=== PATIENT | female | born 1950 | race Hispanic/Latino ===

== ENCOUNTER 2017-06-05 11:46 | Outpatient (CLI) | payer MEDICARE, OTHER | END 2017-06-05 11:47 | disposition home or self-care (01) | LOC: LABHHL 11:46 | PROVIDERS: ATTEND Specialist | DX: N63 Unspecified lump in breast (principal); I10 Essential (primary) hypertension; J45.909 Unspecified asthma, uncomplicated | CPT/HCPCS: 88305; 88361 ==

== ENCOUNTER 2017-06-22 12:42 | Outpatient (CLI) | payer MEDICARE ==
--- NOTE | 2017-06-22 16:33 | Magnetic Resonance Report ---
BILATERAL BREAST MRI WITHOUT AND WITH CONTRAST: 06/22/17 12:42:00 CLINICAL: Newly diagnosed right breast cancer and status post left partial mastectomy for breast cancer 06/14/14. COMPARISON:04/23/17 bilateral mammogram. TECHNIQUE: Axial 1.0-mm T1 without, axial high resolution 2.0-mm T2 and axial 1.0-mm dynamic Vibrant high-resolution postcontrast T1 fat saturation sequences on a 1.5 Rose magnet. The examination was performed with an 8 channel dedicated [place] breast coil. Post processing with CAD and subtraction was performed on an [employer] workstation. 14.0 cc of Multihance was injected without incident for the contrast portion of the exam. Consent was obtained prior to the administration of the contrast. FINDINGS: Right: Mild background parenchymal enhancement. The newly diagnosed cancer is an irregular lower outer mass 8.9 cm from the nipple and 5.5 cm from the chest wall measuring 2.6 x 1.9 x 1.3 cm. It demonstrates heterogeneous enhancement with mixed kinetics 114% peak enhancement and 29% type III washout. No other mass or suspicious enhancement of the right breast. No suspicious right axillary or right internal mammary lymph nodes. Left: Mild background parenchymal enhancement. No mass or suspicious enhancement of the left breast. No suspicious left axillary or left internal mammary lymph nodes. IMPRESSION: Newly diagnosed 2.6 cm right breast cancer and no other suspicious lesion of either breast. No suspicious lymph nodes. RIGHT BI-RADS 6 -- Known Cancer LEFT BI-RADS 1 -- Negative
== END 2017-06-22 12:43 | disposition home or self-care (01) ==
LOC: SPVIMAG 12:42
PROVIDERS: ATTEND Surgery
DX: C50.511 Malignant neoplasm of lower-outer quadrant of right female breast (principal); I10 Essential (primary) hypertension; J45.909 Unspecified asthma, uncomplicated; Z90.12 Acquired absence of left breast and nipple; Z87.891 Personal history of nicotine dependence
CPT/HCPCS: 0159T; A9577; C8908; 77059

== ENCOUNTER 2017-07-08 06:41 | Day surgery (SDC) | payer MEDICARE ==
[2017-07-08] MEDS ORDERED: LACTATED RINGERS 1,000 ML IV SCH (07:00)
[2017-07-08] MEDS ORDERED: VERSED IV NR (07:00)
[2017-07-08] MEDS ORDERED: PEPCID PO NR (07:00)
[2017-07-08] MEDS ORDERED: QUELICIN ONE (07:27)
[2017-07-08] MEDS ORDERED: SUBLIMAZE ONE (07:27)
[2017-07-08] MEDS ORDERED: XYLOCAINE MPF 2% ONE (07:27)
[2017-07-08] MEDS ORDERED: DIPRIVAN 10 MG/ML IV ONE (07:27)
--- NOTE | 2017-07-08 07:52 | Anesthesia Consultation ---
Anesthesia Consult and Med Hx Date of service: 07/08/17 - Airway Anesthetic Teeth Evaluation: Good, Crowns (lower) ROM Head & Neck: Adequate Mental/Hyoid Distance: Adequate Mallampati Class: Class II Intubation Access Assessment: Probably Good - Pulmonary Exam CTA: Yes - Cardiac Exam Cardiac Exam: RRR - Pre-Operative Health Status ASA Pre-Surgery Classification: ASA3 Proposed Anesthetic Plan: General - Pulmonary Hx Smoking: Yes (quit 30 yrs ago) Hx Asthma: Yes (inhaler use last year) Hx Sleep Apnea: No (ANN PRE SCREEN HIGH RISK) - Cardiovascular System Hx Hypertension: Yes Hx Heart Attack/AMI: No Hx Heart Murmur: Yes - Central Nervous System Hx Back Pain: Yes (LUMBAR FUSION) Hx Psychiatric Problems: No - Gastrointestinal Hx Gastroesophageal Reflux Disease: Yes (took nexium) - Endocrine Hx Renal Disease: No Hx Insulin Dependent Diabetes: No Hx Non-Insulin Dependent Diabetes: No - Hematic Hx Anemia: No - Other Systems Hx Alcohol Use: No Hx Substance Use: No Hx Cancer: Yes (rt breast ca, lt mastectomy w sentinel lymph node bx) - Additional Comments Anesthesia Medical History Comments: Woke up a foot surgery
--- NOTE | 2017-07-08 07:54 | Anesthesia Day of Surgery ---
Anesthesia Day of Surgery - Day of Surgery Patient Examined: Yes Patient H&P Reviewed: Yes Patient is NPO: Yes
[2017-07-08] MEDS ORDERED: TRANSDERM-SCOP TD NR (08:00)
[2017-07-08] MEDS ORDERED: NACL BACTERIOSTATIC INFILTRATI ONE (08:03)
[2017-07-08] MEDS ORDERED: ZOFRAN IV PRN ×2 (08:08→11:45)
[2017-07-08 08:13] LABS: Eosinophils % (Auto) 6.4 % (0.0-4.3); Hematocrit 37.9 % (30.3-42.9); Hemoglobin 12.7 gm/dl (10.1-14.3); Mean Corpuscular HGB Conc 34 % (30-34); Mean Corpuscular Hemoglobin 30 pg (28-32); Mean Corpuscular Volume 89 fl (79-97); Platelet Count 212 K/mm3 (140-440); Red Blood Count 4.24 M/mm3 (3.65-5.03); Red Cell Distribution Width 14.4 % (13.2-15.2); White Blood Count 5.9 K/mm3 (4.5-11.0)
[2017-07-08] MEDS ORDERED: MARCAINE-EPI 0.5%-1:200,000 INFILTRATI ONE (08:16)
[2017-07-08] MEDS ORDERED: DECADRON ONE ×2 (08:16→10:36)
[2017-07-08] MEDS ORDERED: SUBLIMAZE IV ONE (08:30)
[2017-07-08] MEDS ORDERED: ANCEF IV ONE (08:55)
[2017-07-08] MEDS ORDERED: WATER FOR IRRIG STERILE IR ONE (08:55)
[2017-07-08] MEDS ORDERED: VANCOMYCIN/NS 1 GM/250 ML 1 GM/250 ML BAG IV NR (09:00)
[2017-07-08] MEDS ORDERED: ZOFRAN ONE ×2 (10:36→11:31)
--- NOTE | 2017-07-08 10:43 | Mammography Report ---
SPECIMEN RADIOGRAPH RIGHT BREAST: 07/08/17 06:41:00 CLINICAL: Partial meniscectomy. FINDINGS: An irregular 2.2 cm mass with a biopsy clip correlates with the known cancer. IMPRESSION: Excision of the known cancer.
--- NOTE | 2017-07-08 10:52 | Short Stay Summary ---
Short Stay Documentation Date of service: 07/08/17 - History H&P: obtained from office - Allergies and Medications Current Medications: Allergies cephalexin monohydrate [From Keflex] Adverse Reaction (Verified 06/08/14 08:10) Rash codeine Adverse Reaction (Verified 06/08/14 08:10) JITTERY levofloxacin [From Levaquin] Adverse Reaction (Verified 06/08/14 08:10) Rash Sulfa (Sulfonamide Antibiotics) Adverse Reaction (Verified 06/08/14 08:10) Unknown Home Medications Medication Instructions Recorded Confirmed Last Taken Type Azelastine HCl [Astepro] 1 spray NS QDAY 06/08/14 07/08/17 07/07/17 History Diclofenac Sodium 75 mg PO BID 06/08/14 07/08/17 07/04/17 History Diltiazem HCl [Diltiazem ER] 120 mg PO QDAY 06/08/14 07/08/17 07/08/17 05:00 History Esomeprazole Magnesium [Nexium] 40 mg PO QDAY 06/08/14 07/08/17 07/08/17 05:00 History Fluticasone Propionate [Flonase] 1 spray NS BID 06/08/14 07/08/17 07/07/17 History Guaifenesin/Pseudoephedrne HCl 1 each PO BID 06/08/14 07/08/17 07/07/17 History [Mucinex D ER Tablet] Losartan/Hydrochlorothiazide 1 each PO QDAY 06/08/14 07/08/17 07/08/17 05:00 History [Hyzaar 100-25 Tablet] Montelukast Sodium [Singulair] 10 mg PO QDAY 06/08/14 07/08/17 07/07/17 History Multivitamin [Multi Vitamin Daily] 1 each PO QDAY 06/08/14 07/08/17 07/07/17 History Hydroxychloroquine [Plaquenil] 200 mg PO QDAY 06/26/17 07/08/17 07/07/17 History Methotrexate Sodium [Trexall] 1 mg PO QDAY 06/26/17 07/08/17 07/07/17 History Potassium Chloride [K-Dur] 10 meq PO QDAY 06/26/17 07/08/17 07/07/17 History Ibuprofen [Motrin 800 MG tab] 800 mg PO Q8HR PRN #30 tablet 07/08/17 Unknown Rx Active Medications Hydromorphone HCl (Dilaudid) 0.5 mg IV Q10MIN PRN PRN Reason: Pain , Severe (7-10) Stop: 07/08/17 15:00 Lactated Ringer's (Lactated Ringers) 1,000 mls @ 100 mls/hr IV DIRECT KAYLEY Last Admin: 07/08/17 08:10 Dose: 100 mls/hr Midazolam HCl (Versed) 2 mg IV PREOP NR Stop: 07/08/17 23:59 Last Admin: 07/08/17 08:33 Dose: 2 mg Scopolamine (Transderm-Scop) 1 each TD PREOP NR Stop: 07/08/17 15:00 Last Admin: 07/08/17 08:24 Dose: 1 each - Brief post op/procedure progress note Date of procedure: 07/08/17 Pre-op diagnosis: Right breast cancer of the lower outer quadrant Post-op diagnosis: same Procedure: Ultrasound guided right partial mastectomy with SLNB Anesthesia: GETA Findings: Radiograph specimen with mass and clip present; 2 SLNs Surgeon: ELIAS KELLEY Obstetrics And Gynecology Professor: MELISSA CONDE Estimated blood loss: minimal Pathology: list (right partial mastectomy and SLN) Specimen disposition: to lab Condition: stable - Disposition Condition at discharge: Good Disposition: DC- TO HOME OR SELFCARE Short Stay Discharge Plan Activity: other (no heavy lifting) Diet: regular Wound: other (keep incision clean and dry; may shower in 24 hours; no baths, pools or lakes; do not rub or scrub incision) Follow up with: MARGIE MONTEMAYOR MD [Primary Care Provider] - 7 Days ELIAS KELLEY MD [Staff Physician] - 7 Days Prescriptions: Ibuprofen [Motrin 800 MG tab] 800 mg PO Q8HR PRN #30 tablet PRN Reason: Pain
--- NOTE | 2017-07-08 11:07 | Operative Report ---
Operative Report Operative Report: Date of service: 07/08/2017 Preoperative diagnosis: Right breast cancer in the lower outer quadrant Postoperative diagnosis: Same Procedure: Ultrasound-guided right partial mastectomy sentinel lymph node biopsy Surgeon: Arlyn Constantino M.D. Asst.:Valentina Pitts MD Anesthesia: Gen. Findings: Known right breast cancer at the 8 o'clock position 4-5 cm from the nipple, radiograph breast specimen with mass and clip present. 2 sentinel lymph nodes identified Consultations: None Drains: None Estimated blood loss: Minimal Disposition: PACU in good condition Indications for operative procedure: This is a 67-year-old lady with a personal history of stage I left breast cancer of the upper inner quadrant 3 years ago now with newly diagnosed right breast cancer of the lower-outer quadrant. Recommendations were to proceed with the above procedure and patient wished to proceed. Procedure in detail: The patient was taken to the operating room and was laid supine. General anesthesia was administered. Right nipple was injected with radioisotope. Anesthesia placed a right pectoral muscle block prior to going back to the operating room. The right breast was prepped and draped in the normal sterile operative fashion. Timeout was performed. The gamma probe was inserted into the axilla for the identification of sentinel lymph node that was marked. Ultrasound was used to wolfgang the area of incision of known breast cancer at the 8 o'clock position 4-5 cm from nipple. A skin incision was made in the axilla with a 15 blade knife and dissection taken down to the subcutaneous tissues. The axillary fascia was opened. Gamma probe was inserted into the axilla with 2 simple lymph nodes identified. Nodes were dissected free and sent to pathology. All remaining counts were less than 10% of the highest count on the gamma probe. Axillar cavity was irrigated and suctioned. Hemostasis was noted. Axillary fascia was approximated and closed using interrupted 3-0 Vicryl and skin brought together and closed using a 4-0 Monocryl followed by skin affix. Attention was then taken towards the right breast. A lateral breast incision was made with a 15 blade knife and dissection taken down to the subcutaneous tissue. First began raising of the superior flap taking down posteriorly to the pectoralis muscle, followed by raising of the medial flap taken down posteriorly to the pectoralis muscle, followed by raising of the inferior flap taken down poseriorly to the pectoralis muscle followed by raising of the lateral flap taken down posteriorly to the pectoralis muscle. Known breast cancer was removed from the pectoralis muscle without incident. The specimen was marked and sent to radiology and pathology. Radiograph specimen of the mass and clip present. Oncoplastic closure was then proceeded to ensure cosmesis. The breast defect cavity was noted to be 7 cm. Breast tissue was appropriately approximated and closed using interrupted 3-0 Vicryl and skin brought together and closed using a 4-0 Monocryl followed by skin affix. She tolerated surgery very well and was awaken from anesthesia and transported to PACU in good condition.
[2017-07-08] MEDS: DILAUDID IV PRN ×2 (11:35→11:45)
--- NOTE | 2017-07-08 11:42 | Post Anesthesia Evaluation ---
- Post Anesthesia Evaluation Patient Participated: Yes Airway Patent: Yes Stable Respiratory Function: Yes Nausea/Vomiting: No Temp > 96.8F: Yes Pain Manageable: Yes Adequeate Hydration: Yes Anesthesia Complications: No Block Receding Appropriately: Not Applicable Patient on Ventilator: No
[2017-07-08 16:57] VITALS: BP 136/77
== END 2017-07-08 13:35 | disposition home or self-care (01) ==
LOC: OR 06:41
PROVIDERS: ATTEND Surgery
DX: C50.511 Malignant neoplasm of lower-outer quadrant of right female breast (principal); M19.90 Unspecified osteoarthritis, unspecified site; J45.909 Unspecified asthma, uncomplicated; I10 Essential (primary) hypertension; K21.9 Gastro-esophageal reflux disease without esophagitis; Z88.1 Allergy status to other antibiotic agents; Z88.5 Allergy status to narcotic agent; Z88.2 Allergy status to sulfonamides; Z88.8 Allergy status to other drugs, medicaments and biological substances; Z90.710 Acquired absence of both cervix and uterus; Z98.890 Other specified postprocedural states; Z87.891 Personal history of nicotine dependence; Z98.1 Arthrodesis status
CPT/HCPCS: 19301; 36415; 38525; 38792; 76098; 78800; 84132; 85025; 88307; 88341; 88342; 88361; A9541; J0330; J0690; J1100; J1170; J2250; J2405; J2704; J3010; J3370; J7120; 88333

== ENCOUNTER 2017-09-04 05:40 | Day surgery (SDC) | payer MEDICARE ==
[2017-09-04] MEDS ORDERED: VERSED IV NR (06:00)
[2017-09-04] MEDS ORDERED: PEPCID PO NR (06:00)
[2017-09-04] MEDS ORDERED: NACL 0.9% 1000 ML 1,000 ML IV SCH (06:00)
[2017-09-04] MEDS ORDERED: NACL BACTERIOSTATIC INFILTRATI ONE (06:46)
[2017-09-04] MEDS ORDERED: HEPARIN 10,000 UNITS/10 ML ONE (06:57)
[2017-09-04] MEDS ORDERED: MARCAINE 0.25% INFILTRATI ONE (06:57)
[2017-09-04] MEDS ORDERED: XYLOCAINE 1% 20 mL ONE (06:58)
[2017-09-04] MEDS ORDERED: NACL 0.9% 100 ML ONE (06:58)
[2017-09-04] MEDS ORDERED: VANCOMYCIN/NS 1 GM/250 ML 1 GM/250 ML BAG IV NR (07:02)
--- NOTE | 2017-09-04 07:10 | Anesthesia Day of Surgery ---
Anesthesia Day of Surgery - Day of Surgery Patient Examined: Yes Patient H&P Reviewed: Yes Patient is NPO: Yes
--- NOTE | 2017-09-04 07:10 | Anesthesia Consultation ---
Anesthesia Consult and Med Hx Date of service: 09/04/17 - Airway Anesthetic Teeth Evaluation: Good, Crowns ROM Head & Neck: Adequate Mental/Hyoid Distance: Adequate Mallampati Class: Class II Intubation Access Assessment: Probably Good - Pulmonary Exam CTA: Yes - Cardiac Exam Cardiac Exam: RRR - Pre-Operative Health Status ASA Pre-Surgery Classification: ASA3 Proposed Anesthetic Plan: General - Pulmonary Hx Smoking: Yes (quit 30 yrs ago, smoked x 1 yr) Hx Asthma: Yes (inhaler use last year) Hx Sleep Apnea: No (ANN PRE SCREEN HIGH RISK) - Cardiovascular System Hx Hypertension: Yes Hx Heart Attack/AMI: No Hx Heart Murmur: Yes - Central Nervous System Hx Back Pain: Yes (LUMBAR FUSION) Hx Psychiatric Problems: No - Gastrointestinal Hx Gastroesophageal Reflux Disease: Yes - Endocrine Hx Renal Disease: No Hx Insulin Dependent Diabetes: No Hx Non-Insulin Dependent Diabetes: No - Hematic Hx Anemia: No - Other Systems Hx Alcohol Use: No Hx Substance Use: No Hx Cancer: Yes (rt breast ca, lt mastectomy w sentinel lymph node bx) - Additional Comments Anesthesia Medical History Comments: ponv
[2017-09-04] MEDS ORDERED: TRANSDERM-SCOP TD NR (07:22)
[2017-09-04] MEDS ORDERED: DILAUDID ONE (07:23)
[2017-09-04] MEDS ORDERED: XYLOCAINE MPF 2% ONE (07:23)
[2017-09-04] MEDS ORDERED: DIPRIVAN 10 MG/ML IV ONE ×3 (07:23→09:09)
[2017-09-04] MEDS ORDERED: VERSED ONE (07:23)
[2017-09-04] MEDS ORDERED: NACL 0.9% IR ONE ×2 (08:41→08:42)
[2017-09-04] MEDS ORDERED: XYLOCAINE 1% 20 mL INFILTRATI ONE ×2 (08:41)
[2017-09-04] MEDS ORDERED: HEPARIN 10,000 UNITS/10 ML IR ONE (08:41)
[2017-09-04] MEDS ORDERED: HEPARIN IR ONE (08:42)
[2017-09-04] MEDS ORDERED: PERCOCET 5/325 PO PRN (09:30)
--- NOTE | 2017-09-04 09:37 | Short Stay Summary ---
Short Stay Documentation Date of service: 09/04/17 Narrative H&P: 67 yo F with hx of breast ca on Left and newly diagnosed R sided breast ca presents for port placement. No complaints. - History Principal diagnosis: breast cancer H&P: obtained from office (see paper short stay form) - Allergies and Medications Current Medications: Allergies cephalexin monohydrate [From Keflex] Adverse Reaction (Intermediate, Verified 09:30) Rash codeine Adverse Reaction (Verified 09/02/17 10:37) JITTERY hydrocodone Adverse Reaction (Verified 09/04/17 09:29) Nausea levofloxacin [From Levaquin] Adverse Reaction (Verified 09/02/17 10:37) Rash Sulfa (Sulfonamide Antibiotics) Adverse Reaction (Verified 09/02/17 10:37) Unknown tramadol Adverse Reaction (Verified 09/04/17 09:30) Nausea bactrim Adverse Reaction (Uncoded 09/04/17 09:31) Unknown Home Medications Medication Instructions Recorded Confirmed Last Taken Type Azelastine HCl [Astepro] 1 spray NS QDAY 06/08/14 09/04/17 09/03/17 History Diclofenac Sodium 75 mg PO BID 06/08/14 09/04/17 09/03/17 History Diltiazem HCl [Diltiazem ER] 120 mg PO QDAY 06/08/14 09/04/17 09/04/17 History Esomeprazole Magnesium [Nexium] 40 mg PO QDAY 06/08/14 09/04/17 09/03/17 History Fluticasone Propionate [Flonase] 1 spray NS BID 06/08/14 09/04/17 09/03/17 History Guaifenesin/Pseudoephedrne HCl 1 each PO BID 06/08/14 09/04/17 09/03/17 History [Mucinex D ER Tablet] Losartan/Hydrochlorothiazide 1 each PO QDAY 06/08/14 09/04/17 09/03/17 History [Hyzaar 100-25 Tablet] Montelukast Sodium [Singulair] 10 mg PO QDAY 06/08/14 09/04/17 09/03/17 History Multivitamin [Multi Vitamin Daily] 1 each PO QDAY 06/08/14 09/04/17 09/03/17 History Hydroxychloroquine [Plaquenil] 200 mg PO QDAY 06/26/17 09/04/17 09/03/17 History Methotrexate Sodium [Trexall] 1 mg PO QDAY 06/26/17 09/04/17 09/03/17 History Potassium Chloride [K-Dur] 10 meq PO QDAY 06/26/17 09/04/17 09/03/17 History Ibuprofen [Motrin 800 MG tab] 800 mg PO Q8HR PRN #30 tablet 07/08/17 09/04/17 Rx Active Medications Famotidine (Pepcid) 20 mg PO PREOP NR Stop: 09/04/17 23:00 Last Admin: 09/04/17 06:40 Dose: 20 mg Hydromorphone HCl (Dilaudid) 0.5 mg IV Q10MIN PRN PRN Reason: Pain , Severe (7-10) Stop: 09/04/17 15:00 Sodium Chloride (Nacl 0.9% 1000 Ml) 1,000 mls @ 75 mls/hr IV DIRECT KAYLEY Last Admin: 09/04/17 06:45 Dose: 75 mls/hr Vancomycin HCl (Vancomycin/Ns 1 Gm/250 Ml) 1 gm in 250 mls @ 167.007 mls/hr IV PREOP NR PRN Reason: Protocol Stop: 09/04/17 23:59 Midazolam HCl (Versed) 2 mg IV PREOP NR Stop: 09/04/17 23:59 Last Admin: 09/04/17 07:34 Dose: 2 mg Scopolamine (Transderm-Scop) 1 each TD PREOP NR Stop: 09/04/17 23:59 - Brief post op/procedure progress note Date of procedure: 09/04/17 Pre-op diagnosis: breast cancer Post-op diagnosis: same Procedure: placement of left subclavian port Anesthesia: MAC, local Findings: port placement verified on post op chest xray Surgeon: MELISSA CONDE Estimated blood loss: minimal Pathology: none Condition: stable - Hospital course Hospital course: Pt was recovered in PACU and discharged when all criteria met. - Disposition Condition at discharge: Stable Disposition: DC-01 TO HOME OR SELFCARE - Discharge Diagnoses (1) Breast cancer Status: Acute Qualifiers: Breast location: B Estrogen receptor status: E Patient sex: P Laterality: L Short Stay Discharge Plan Activity: other (avoid heavy lifting with left arm for the next 2 weeks) Diet: regular Wound: open to air, other (may shower tomorrow, no baths/hottubs/pools until incisions healed. pat incisions dry, do not scrub. ) Additional Instructions: - Do not drive if taking narcotic pain medications. - Call office or return to ER if redness/purulent drainage from wound, intractable pain, temp>100.4 Follow up with: MARGIE MONTEMAYOR MD [Primary Care Provider] - 7 Days MELISSA CONDE DO [Staff Physician] - 14 Days
[2017-09-04] MEDS: DILAUDID IV PRN ×2 (09:42→10:01)
--- NOTE | 2017-09-04 09:54 | Operative Report ---
Operative Report Operative Report: Date of procedure 09/04/2017 Diagnosis: Right breast cancer Diagnosis: Same as above Procedure performed placement of left subclavian Port-A-Cath Surgeon: Eulalia Pitts DO Anesthesia: MAC, Local Findings: Confirmation of correct placement on postoperative x-ray Estimated blood loss: 25 mL Complications: None Disposition: Stable to PACU HPI and indication: Patient 67-year-old female with a history of left-sided breast cancer status post partial mastectomy and now recently diagnosed right sided breast cancer. She is being worked up by Dr. Constantino and follows with an oncologist. The patient is a candidate for chemotherapy and presents for port placement. All risks were discussed including but not limited to infection , bleeding, pneumothorax, injury to other structures. All questions were answered and the patient signed a consent. Procedure in detail: The patient was identified in the preoperative area, taken to operating room, placed on operating table in supine position. After anesthesia was induced the chest and neck were prepped and draped in usual sterile fashion and a time out was performed. Local anesthetic was infiltrated at the site of needle access. The left subclavian vein was accessed on the first stick with return of dark red, nonpulsatile blood. The wire was unable to be threaded despite multiple attempts on fluoroscopy. Therefore, the decision was made to attempt IJ access. Using ultrasound guidance, the L IJ vein was identified and accessed on the first stick. There was return of dark red, nonpulsatile blood. The wire was unable to threaded despite attempts with a glidewire and under fluoroscopy. Pressure was held on the site and I returned to attempting subclavian vein access. The vein was again accessed on the first stick and a glide wire threaded under fluoroscopic guidance without resistance. The wire was confirmed in the correct position by xray. The needle was then removed. Local anesthetic was infiltrated in the skin and subcutaneous tissue at the site of the pocket. A 4cm incision was made using a 15 blade in the upper chest and dissection carried down through the skin an subcutaneous tissue with bovie electrocautery. Hemostasis was achieved along the way. The pocket was developed under the subcutaneous tissue blunty and with cautery. The catheter was then tunneled and catheter/dilator sheath introduced over the glidewire under fluoro. The glidewire and dilator were removed and the catheter inserted through the breakaway sheath and the sheath torn away. Using Xray, the catheter was pulled back until the tip was at the cavoatrial junction. The catheter was cut to size and the port attached. This was sutured to the fascia using 2-0 vicryl stitches. The port was tested with heparinized saline and there was return of venous blood and the port flushed easily. The port was then instilled with 3000Units of heparin. The wound was irrigated and hemostasis ensured. The deep dermal layer was closed with interrupted 3-0 vicryl stitches. The skin of both incisions was closed with 4-0 monocryl subcuticular stitches and skin glue. At the end of the case, all sharp, sponge, and instrument counts were correct 2. The patient tolerated the procedure well and was awoken from anesthesia. Post operative CXR imaging was reviewed. NO PTX and tip of catheter in correct position.
--- NOTE | 2017-09-04 10:12 | Fluoroscopy Report ---
Single view chest: History: Breast cancer/insertion of Duboep-[id number]-Pegp Findings: Cardiomegaly. Trachea is midline. No consolidation, pneumothorax or pleural effusion. Tip of left [id number] in mid superior vena cava. Impression: Tip of left Cvklia-i-[id number] in mid superior vena cava.
[2017-09-04] MEDS ORDERED: ZOFRAN IV ONE (11:09)
[2017-09-04] MEDS ORDERED: PHENERGAN PO ONE (12:00)
[2017-09-04] MEDS ORDERED: DECADRON IV ONE (12:30)
[2017-09-04 13:17] VITALS: BP 134/33
== END 2017-09-04 12:50 | disposition home or self-care (01) ==
LOC: OR 05:40
PROVIDERS: ATTEND Surgery
DX: C50.911 Malignant neoplasm of unspecified site of right female breast (principal); I10 Essential (primary) hypertension; J45.909 Unspecified asthma, uncomplicated; K21.9 Gastro-esophageal reflux disease without esophagitis; M13.869 Other specified arthritis, unspecified knee; M13.849 Other specified arthritis, unspecified hand; Z98.51 Tubal ligation status; Z79.899 Other long term (current) drug therapy; Z88.2 Allergy status to sulfonamides; Z88.8 Allergy status to other drugs, medicaments and biological substances; Z88.0 Allergy status to penicillin; Z88.5 Allergy status to narcotic agent; Z90.12 Acquired absence of left breast and nipple; Z87.891 Personal history of nicotine dependence; Z90.710 Acquired absence of both cervix and uterus; Z98.890 Other specified postprocedural states
CPT/HCPCS: 36415; 36561; 77001; 84132; C1769; C1788; J1100; J1170; J1644; J2250; J2405; J2704; J3370; J7030; J7050; Q0169

== ENCOUNTER 2017-09-24 12:00 | Outpatient (CLI) | payer MEDICARE ==
--- NOTE | 2017-09-25 11:38 | PET Report ---
PET SB TO MT INITIAL: HISTORY: Left breast cancer. TECHNIQUE: 14.1 millicuries F-18 FDG was administered intravenously. Noncontrast CT images and PET images were obtained from the skull base to the proximal thighs. Fused images were reviewed on a workstation. The patient's blood glucose level measured 90. COMPARISON: None. FINDINGS: BRAIN: physiologic FDG uptake in the imaged brain. NECK: physiologic FDG uptake. CHEST WALL: Surgical changes are noted in the left breast and left axilla. No recurrent mass or adenopathy identified. MEDIASTINUM: physiologic FDG uptake. LUNGS: physiologic FDG uptake. PLEURA/PERICARDIUM: physiologic FDG uptake. THORACIC LYMPH NODES: physiologic FDG uptake. HEPATOBILIARY: physiologic FDG uptake. Mean liver SUV measures 3.8. PANCREAS: physiologic FDG uptake. SPLEEN: physiologic FDG uptake. ADRENAL GLANDS: physiologic FDG uptake. KIDNEYS/RENAL COLLECTING SYSTEMS: physiologic FDG uptake. BOWEL/MESENTERY: physiologic FDG uptake. PELVIC VISCERA: physiologic FDG uptake. ABDOMINAL/PELVIC LYMPH NODES: physiologic FDG uptake. MUSCULOSKELETAL: physiologic FDG uptake. IMPRESSION: Negative PET/CT.
== END 2017-09-24 12:01 | disposition home or self-care (01) ==
LOC: PET 12:00
PROVIDERS: ATTEND Internal Medicine Hematology & Oncology
DX: C50.511 Malignant neoplasm of lower-outer quadrant of right female breast (principal); Z79.899 Other long term (current) drug therapy
CPT/HCPCS: 78815; 82962; A9552

== ENCOUNTER 2018-08-03 09:21 | Outpatient (CLI) | payer MEDICARE ==
--- NOTE | 2018-08-03 13:40 | Nuclear Medicine Report ---
BONE SCAN: History: Malignant neoplasm of right breast. After injection of isotope, gamma camera imaging of the bony system was done. Mild degenerative uptake is noted in the shoulders, knees and feet. No evidence for calvarial, spinal, pelvic or calvarial lesions. The metastatic pattern is appreciated. Normal uptake in the urinary system is seen. IMPRESSION: Negative bone scan.
--- NOTE | 2018-08-04 07:39 | Cat Scan Report ---
CT CHEST WITH CONTRAST: HISTORY: Malignant neoplasm of right breast. COMPARISON: Head CT performed 09/24/17. Bone scan performed the same day. TECHNIQUE: Helical CT in 1.25mm intervals following IV contrast. Sagittal and coronal reformatted images. FINDINGS: Thyroid gland: Only the inferior half of the thyroid gland is imaged which is unremarkable. Tracheobronchial tree: Normal. Esophagus: Normal. Heart: Normal. Pericardium: Normal. Mediastinum: No mediastinal mass or adenopathy detected. Lung Mayer: Minor subpleural scarring is identified in the anterior right upper lobe and right middle lobe suggesting radiation changes. The remainder of the lung parenchyma is within normal limits. No evidence for nodule, mass or infiltrate. Pleural Spaces: Normal. Musculoskeletal: There is moderate scoliosis of the thoracolumbar spine. No suspicious bony lesion is identified. A discoid fluid collection is identified in the subcutaneous tissues inferior to the right breast measuring 4.9 x 1.5 cm in axial dimension. This probably represents a seroma. IMPRESSION: No evidence for metastatic disease to the chest. Radiation changes in the anterior right lung. Small right chest wall seroma as described. CT ABDOMEN PELVIS WITH CONTRAST: HISTORY: Malignant neoplasm of right breast. COMPARISON: Head CT performed 09/24/17. Bone scan performed the same day. TECHNIQUE: Helical CT in 1.25mm intervals following IV contrast. Sagittal and coronal reconstructions. FINDINGS: Liver: Normal size and contour. 4 liver cysts are identified with the largest cyst measuring 2.3 cm in the inferior right hepatic lobe. No suspicious liver mass. Biliary system: Normal. Pancreas: Normal. Spleen: Normal. Kidneys/ureters/bladder: There is mild multifocal cortical scarring in the left kidney suggesting previous pyelonephritis. A few scattered tiny simple cysts are noted in both kidneys. The ureters and bladder are unremarkable. Adrenal glands: Normal. Aorta: Normal. Intestines: There is moderate to severe fecal retention throughout the colon. Multiple diverticula are identified throughout the colon. No evidence for mass, obstruction or focal inflammation. The small bowel loops and stomach are unremarkable. Appendix: Normal. Pelvic viscera: Hysterectomy changes are suspected. No adnexal cyst or mass. Ascites: None. Adenopathy: None. Musculoskeletal: Thoracolumbar scoliosis with posterior stabilization of the lower lumbar spine and degenerative changes are noted. No suspicious bony lesion is appreciated. IMPRESSION: No evidence for metastatic disease to the abdomen or pelvis. Fecal retention. Mild diverticulosis of the colon. Scattered liver and renal cysts. Chronic cortical scarring in the left kidney. Assumed hysterectomy.
== END 2018-08-03 09:22 | disposition home or self-care (01) ==
LOC: NM 09:21
PROVIDERS: ATTEND Internal Medicine Hematology & Oncology
DX: C50.511 Malignant neoplasm of lower-outer quadrant of right female breast (principal); K57.30 Diverticulosis of large intestine without perforation or abscess without bleeding; N28.1 Cyst of kidney, acquired; N28.89 Other specified disorders of kidney and ureter; K59.00 Constipation, unspecified; I10 Essential (primary) hypertension; K21.9 Gastro-esophageal reflux disease without esophagitis; J45.909 Unspecified asthma, uncomplicated; M19.90 Unspecified osteoarthritis, unspecified site; Z87.891 Personal history of nicotine dependence; Z90.710 Acquired absence of both cervix and uterus; Z90.12 Acquired absence of left breast and nipple; Z90.721 Acquired absence of ovaries, unilateral
CPT/HCPCS: 36415; 71260; 74177; 78306; 82565; 84520; A9503; Q9967

== ENCOUNTER 2018-08-18 07:29 | Day surgery (SDC) | payer MEDICARE, OTHER ==
[~2018-08-18 07:29] MED LIST: MARCAINE 0.5% INFILTRATI ONE; MARCAINE-EPI 0.5%-1:200,000 INFILTRATI ONE; XYLOCAINE 1% 20 mL ONE
[2018-08-18 07:56] VITALS: BP 146/84
[2018-08-18] MEDS ORDERED: MARCAINE 0.25% INFILTRATI ONE ×2 (09:08→09:47)
[2018-08-18] MEDS ORDERED: XYLOCAINE 1% 20 mL INFILTRATI ONE (09:50)
[2018-08-18] MEDS ORDERED: NACL 0.9% IR ONE (09:52)
--- NOTE | 2018-08-18 16:53 | Operative Report ---
Operative Report Operative Report: Date of surgery: 08/18/18 Preoperative diagnosis: breast cancer s/p chemotherapy Post operative diagnosis: same as above Procedure: removal of Left sided port a cath Surgeon: Savage Pitts DO Anesthesia: local Findings: removal of entire port cath Specimen: port with catheter Complications: None Disposition: Home HPI and indication: 68 yo F with breast cancer, now s/p chemotherapy. The patient has completed chemotherapy and is now ready for port a cath removal. All risks, benefits or port removal discussed with patient and consent obtained. Procedure in detail: The patient was identified and brought to the OR procedure room. She was positioned in supine position on the stretcher. The left upper chest was prepped and draped in the usual sterile fashion. A time out was performed. Local anesthetic (50/50 mixture of 1% lidocaine and 0.25% marcaine was injected into the skin and subcutaneous tissue at the intended incision site. Using a 15 blade a 4 cm incision was made over the old scar and incision taken down to the subcutaneous tissue. The subcuataneous tissue was dissected bluntly with hemostat until the catheter tubing was identified. This was grasped between two hemostats and transected between the stats using a metzenbaum scissor. The catheter portion was removed intact and pressure help above and below the left clavicle for 5 minutes. Once pressure was released, there was no bleeding from the tract. The port was then dissected from the surrounding subcutaneous tissue using a hemostat. Once circumferentially dissected, the port was removed. The catheter and port were sent to pathology as specimen. The wound was irrigated with saline and hemostasis ensured. The wound was clean. The deep dermal layer was closed using interrupted 3-0 vicryl suture. The skin was approximated using 4-0 monocryl subcuticular running stitch. Steristrips were applied across the wound. This was covered with 4x4 gauze and tegaderm. The patient tolerated the procedure well. All sharps were disposed of appropriately and sponge, instrument, sharp counts were correct at the end of the procedure. The patient was discharged in stable condition.
== END 2018-08-18 09:54 | disposition home or self-care (01) ==
LOC: OR 07:29
PROVIDERS: ATTEND Surgery
DX: Z45.2 Encounter for adjustment and management of vascular access device (principal); C50.912 Malignant neoplasm of unspecified site of left female breast; C50.911 Malignant neoplasm of unspecified site of right female breast; I10 Essential (primary) hypertension; J45.909 Unspecified asthma, uncomplicated; K21.9 Gastro-esophageal reflux disease without esophagitis; M19.019 Primary osteoarthritis, unspecified shoulder; M19.049 Primary osteoarthritis, unspecified hand; Z79.899 Other long term (current) drug therapy; Z88.1 Allergy status to other antibiotic agents; Z88.5 Allergy status to narcotic agent; Z98.51 Tubal ligation status; Z90.13 Acquired absence of bilateral breasts and nipples; Z90.721 Acquired absence of ovaries, unilateral; Z87.891 Personal history of nicotine dependence; Z98.890 Other specified postprocedural states
CPT/HCPCS: 88302

== ENCOUNTER 2018-12-30 08:16 | Outpatient (CLI) | payer MEDICARE ==
--- NOTE | 2018-12-30 13:10 | PET Report ---
PET/CT:12/30/18 08:16:00 CLINICAL: Left breast cancer restaging. RADIOPHARMACEUTICAL: 13.967mCi F18-FDG. COMPARISON: 09/24/17 PET/CT TECHNIQUE- Following intravenous injection of F-18 FDG and an approximately 60 minute uptake period, CT and PET images from the mid skull to the upper thighs were acquired with the patient in the fasted state. No contrast was administered. The CT protocol used for this PET CT study is designed for attenuation correction and anatomic localization of PET abnormalities. This cotton opener CT is not desired to produce and cannot replace, jzbox-fn-ftd-art diagnostic CT scans with specific imaging protocols for different body parts and indications. Plasma glucose at the time of this test: 89g/dl. The standardized uptake values (SUV) are normalized to patient body weight and indicate the highest activity concentration (SUV max) in a given disease site. FINDINGS: Brain--Physiologic FDG uptake in the visualized regions of the brain. Neck--Physiologic FDG uptake mucosal structures. No mass or lymphadenopathy. Chest--Physiologic FDG uptake in mediastinal blood pool and myocardium. Lungs--No abnormal uptake. No pulmonary nodule or mass. A 1.2 cm right upper lobe calcified granuloma. Pleura/pericardium--No abnormal uptake. Thoracic nodes--No abnormal uptake. A calcified right pulmonary hilar lymph node. Hepatobiliary--No abnormal uptake. Liver background SUV mean, as a reference for comparing FDG studies, is 2.3 compared to 3.3 on the last exam. No liver mass. Spleen--No abnormal uptake. Pancreas--No abnormal uptake. Adrenal Glands--No abnormal uptake. Kidneys/Ureters/Bladder--No abnormal uptake. Abdominopelvic Nodes--No abnormal uptake. Bowel/Peritoneum/Mesentery--Sigmoid diverticulosis and FDG uptake in the sigmoid colon suggesting possible diverticulitis. Pelvic organs--No abnormal uptake. Bones/Soft Tissues--No abnormal uptake and no suspicious bone lesions. IMPRESSION- Negative study with no evidence of disease recurrence or metastasis. Old granulomatous disease. Possible sigmoid diverticulitis.
== END 2018-12-30 08:17 | disposition home or self-care (01) ==
LOC: PET 08:16
PROVIDERS: ATTEND Internal Medicine Hematology & Oncology
DX: C50.511 Malignant neoplasm of lower-outer quadrant of right female breast (principal); I10 Essential (primary) hypertension; K21.9 Gastro-esophageal reflux disease without esophagitis; J45.909 Unspecified asthma, uncomplicated; Z87.891 Personal history of nicotine dependence
CPT/HCPCS: 78815; 82962; A9552

== ENCOUNTER 2019-04-14 08:10 | Outpatient (CLI) | payer MEDICARE ==
--- NOTE | 2019-04-20 08:17 | PET Report ---
PET/CT:04/14/19 08:10:00 CLINICAL: Left breast cancer staging. RADIOPHARMACEUTICAL: 13.967mCi F18-FDG. COMPARISON: 12/30/18 PET/CT TECHNIQUE- Following intravenous injection of F-18 FDG and an approximately 60 minute uptake period, CT and PET images from the mid skull to the upper thighs were acquired with the patient in the fasted state. No contrast was administered. The CT protocol used for this PET CT study is designed for attenuation correction and anatomic localization of PET abnormalities. This cupola hoist operator CT is not desired to produce and cannot replace, yitlw-eb-upn-art diagnostic CT scans with specific imaging protocols for different body parts and indications. Plasma glucose at the time of this test: g/dl. The standardized uptake values (SUV) are normalized to patient body weight and indicate the highest activity concentration (SUV max) in a given disease site. FINDINGS: Brain--Physiologic FDG uptake in the visualized regions of the brain. Neck--Physiologic FDG uptake . Chest--Physiologic FDG uptake in mediastinal blood pool and myocardium. Lungs--No abnormal uptake. No pulmonary nodule or mass. A 1.2 cm calcified right upper lobe granuloma. Pleura/pericardium--No abnormal uptake. Thoracic nodes--No abnormal uptake. Small calcified right hilar lymph nodes. Surgical clips in the left axilla. Hepatobiliary--No abnormal uptake. Liver background SUV mean, as a reference for comparing FDG studies, is 3.3 compared to 2.3 on the last exam. No liver mass. Spleen--No abnormal uptake. Pancreas--No abnormal uptake. Adrenal Glands--No abnormal uptake. Kidneys/Ureters/Bladder--No abnormal uptake. Abdominopelvic Nodes--No abnormal uptake. Bowel/Peritoneum/Mesentery--No abnormal uptake. Physiologic uptake in both large and small bowel. Sigmoid diverticulosis and decreased FDG uptake in the sigmoid colon. Pelvic organs--No abnormal uptake. Bones/Soft Tissues--No abnormal uptake and no suspicious bone lesions Other findings: Status post lower lumbar posterior fusion. IMPRESSION- 1. Negative study. 2. No evidence of disease recurrence or metastasis. 3. Old granulomatous disease. 4. Diverticulosis but no diverticulitis.
== END 2019-04-14 08:11 | disposition home or self-care (01) ==
LOC: PET 08:10
PROVIDERS: ATTEND Internal Medicine Hematology & Oncology
DX: C50.511 Malignant neoplasm of lower-outer quadrant of right female breast (principal); K57.90 Diverticulosis of intestine, part unspecified, without perforation or abscess without bleeding; I10 Essential (primary) hypertension; J45.909 Unspecified asthma, uncomplicated; K21.9 Gastro-esophageal reflux disease without esophagitis; Z90.710 Acquired absence of both cervix and uterus; Z87.891 Personal history of nicotine dependence
CPT/HCPCS: 78815; A9552

== ENCOUNTER 2019-12-29 09:14 | Outpatient (CLI) | payer MEDICARE ==
--- NOTE | 2019-12-29 13:51 | PET Report ---
PET/CT HISTORY: C50.511. Restaging of right breast cancer TECHNIQUE: The patient's fasting blood glucose was 76. The patient weighed 113 lbs. The patient wa s injected with 15.56 mCi of FDG in the left hand at 1025 hours and imaging was started at 1118 hours . The patient was imaged from the skull base to the thighs. All CT scans at this location are perfor med using CT dose reduction for ALARA by means of automated exposure control. Images were reviewed on a workstation. COMPARISON: 04/14/2019 FINDINGS: IMAGED BRAIN: [Physiologic FDG uptake] NECK: [Physiologic FDG uptake] CHEST WALL: [Physiologic FDG uptake]. No recurrent chest wall mass or thoracic adenopathy is appreci ated. Left axillary lymph node dissection changes are noted. MEDIASTINUM: [Physiologic FDG uptake] LUNGS: [Physiologic FDG uptake] HEPATOBILIARY: [Physiologic FDG uptake] PANCREAS: [Physiologic FDG uptake SPLEEN: [Physiologic FDG uptake] KIDNEYS/BLADDER: [Physiologic FDG uptake]. Liver SUV measures 4.0. Few scattered liver cysts are unc hanged. ADRENAL GLANDS: [Physiologic FDG uptake] GI/MESENTERY: [Moderate diverticular disease is noted in the distal colon. There are 2 or 3 foci of increased radiotracer uptake in the sigmoid region with max SUV ranging from 6.7-9.2. This is presuma krys related to diverticular disease. No discrete mass is appreciated on the CT images. The remaining bowel loops and mesenteric structures are unremarkable. PELVIC VISCERA: [Physiologic FDG uptake]. Hysterectomy changes are suspected. LYMPH NODES: [Physiologic FDG uptake] OSSEOUS STRUCTURES: [Physiologic FDG uptake]. Scoliosis and lower lumbar fusion changes are stable. No suspicious bony lesion is detected. ADDITIONAL FINDINGS: [None] IMPRESSION: Negative PET CT. No evidence for disease recurrence or metastasis. Please note there are 2 or 3 foci of increased radiotracer uptake in the sigmoid colon within conside rable diverticular disease. In retrospect this is noted on the previous exam and likely represents be nign GI activity. Signer Name: Isaiah Bahena Jr, MD Signed: 12/29/2019 1:47 PM Workstation Name: [id number]
== END 2019-12-29 09:15 | disposition home or self-care (01) ==
LOC: PET 09:14
PROVIDERS: ATTEND Internal Medicine Hematology & Oncology
DX: C50.511 Malignant neoplasm of lower-outer quadrant of right female breast (principal); K57.30 Diverticulosis of large intestine without perforation or abscess without bleeding; M85.862 Other specified disorders of bone density and structure, left lower leg; D50.8 Other iron deficiency anemias
CPT/HCPCS: 78815; 82962; A9552

== ENCOUNTER 2020-11-08 07:11 | Outpatient (CLI) | payer MEDICARE ==
--- NOTE | 2020-11-08 10:41 | PET Report ---
PET/CT HISTORY: C50.511 RIGHT BREAT CA. Restaging of right breast cancer TECHNIQUE: The patient's fasting blood glucose was 71. The patient weighed 112 lbs. The patient wa s injected with 11.3 mCi of FDG in the left hand at 0816 hours and imaging was started at 0917 hours. The patient was imaged from the skull base to the thighs. All CT scans at this location are perform ed using CT dose reduction for ALARA by means of automated exposure control. Images were reviewed on a workstation. COMPARISON: Multiple previous exams with the most recent being PET/CT performed 12/29/2019 FINDINGS: IMAGED BRAIN: [Physiologic FDG uptake. NECK: Physiologic FDG uptake. CHEST WALL: Physiologic FDG uptake. Stable surgical changes in the inferior right breast.. MEDIASTINUM: Physiologic FDG uptake. LUNGS: Physiologic FDG uptake. No suspicious pulmonary nodule is detected. HEPATOBILIARY: Physiologic FDG uptake. Background liver SUV measures 2.8. There are a few scattered hypodensities in the liver previously described as cysts. An 8 mm hypodensity is identified in the an terior right hepatic lobe with max SUV measuring 1.9. A second 8 mm hypodensity is seen in the patient transition specialist ior right hepatic lobe with max SUV measuring 1.9. A third 2.9 cm lobulated hypodensity is identified in the inferior right hepatic lobe with max SUV measuring 1.3. The small lesions have increased and decreased in size over previous exams which is probably secondary to slice thickness artifact. They a re hypometabolic and appear to represent cysts. PANCREAS: Physiologic FDG uptake. SPLEEN: Physiologic FDG uptake. KIDNEYS/BLADDER: Physiologic FDG uptake. ADRENAL GLANDS: Physiologic FDG uptake. GI/MESENTERY: Physiologic FDG uptake. PELVIC VISCERA: Physiologic FDG uptake. LYMPH NODES: Physiologic FDG uptake. OSSEOUS STRUCTURES: Physiologic FDG uptake. No suspicious bony lesions are detected. Moderate thorac olumbar scoliosis with degenerative changes in lumbar fusion. ADDITIONAL FINDINGS: None. IMPRESSION: Negative PET CT. No FDG avid disease is detected. Stable findings since 12/29/2019 exam. Signer Name: Isaiah Bahena Jr, MD Signed: 11/08/2020 10:37 AM Workstation Name: [id number]
== END 2020-11-08 07:12 | disposition home or self-care (01) ==
LOC: PET 07:11
PROVIDERS: ATTEND Internal Medicine Hematology & Oncology
DX: C50.111 Malignant neoplasm of central portion of right female breast (principal); M85.862 Other specified disorders of bone density and structure, left lower leg; D50.8 Other iron deficiency anemias; K76.9 Liver disease, unspecified; K76.89 Other specified diseases of liver; M41.85 Other forms of scoliosis, thoracolumbar region
CPT/HCPCS: 78815; 82962; A9552